=== PATIENT | female | born 1990 | race Caucasian/White ===

== ENCOUNTER → 2017-01-17 | Outpatient (CLI) | payer MEDICAID ==
[~2017-01-17] MED LIST: IBUP-1222 PO; IRON1TAB60 PO; OXYC-302 PO; PREN1TAB56 PO
== END ==
LOC: RAD 17:21
PROVIDERS: ATTEND Registered Nurse
DX: M25.561 Pain in right knee (principal); M25.571 Pain in right ankle and joints of right foot; X50.1XXD Overexertion from prolonged static or awkward postures, subsequent encounter; X58.XXXD Exposure to other specified factors, subsequent encounter

== ENCOUNTER 2017-03-06 21:45 | Emergency (ER) | payer MEDICAID ==
[~2017-03-06] VITALS: Ht 152.4 cm; Wt 73.3 kg
[2017-03-06 21:47] VITALS: BP 118/72
== END 2017-03-06 22:34 | disposition home or self-care (01) ==
LOC: ED 22:32
DX: T18.8XXA Foreign body in other parts of alimentary tract, initial encounter (principal); X58.XXXA Exposure to other specified factors, initial encounter; Y93.89 Activity, other specified; Y99.8 Other external cause status; Y92.89 Other specified places as the place of occurrence of the external cause
CPT/HCPCS: 99281